=== PATIENT | female | born 1945 | race Caucasian/White ===

== ENCOUNTER 2016-10-01 12:19 | Observation (INO) ==
[2016-10-01] MEDS ORDERED: HYDROmorphone 2 MG/1 ML VIAL IV PRN (14:04)
[2016-10-01] MEDS ORDERED: ACETAMINOPHEN 325 MG TABLET PO PRN (14:04)
[2016-10-01] MEDS ORDERED: ONDANSETRON 4 MG/2 ML VIAL IV PRN (14:04)
[2016-10-01 14:32] LABS: Basophils # 0.1 10*3/uL (0.0-0.2); Basophils % 0.9 % (0.0-0.8); Eosinophils # 0.6 10*3/uL (0.0-0.87); Eosinophils % 6.3 % (0.00-10.9); Hematocrit 40.3 VOL% (35.7-47.0); Hemoglobin 13.5 GM/DL (12.0-16.0); Immature Granulocytes % 0.4 %; Immature Granulocytes Absolute 0.04 #; Lymphocytes # 1.4 10*3/uL (1.4-4.0); Lymphocytes % 15.3 % (21.3-54.2); Mean Corpuscular HGB Conc 33.5 GM/DL (32-36); Mean Corpuscular Hemoglobin 30 PG (27-34); Mean Corpuscular Volume 90.8 FL (87-102); Mean Platelet Volume 9.7 FL (9.6-12.0); Monocytes # 0.5 10*3/uL (0.11-0.8); Monocytes % 5.7 % (1.7-12.7); NRBC # 0.04 10*3/uL; Neutrophils # 6.5 10*3/uL (1.4-7.4); Neutrophils % 71.4 % (38.7-73.9); Platelet Count 242 T/CUMM (130-400); Red Blood Count 4.44 MC/CUMM (3.8-5.5); Red Cell Distribution Width 14.2 % (9.3-17.3); White Blood Count 9.1 T/CUMM (4-12)
[2016-10-01 15:07] LABS: Alanine Aminotransferase 33 U/L (13-56); Albumin 2.6 G/DL (3.4-5.0); Alkaline Phosphatase 180 U/L (45-117); Aspartate Amino Transferase 27 U/L (0-37); Bilirubin,Total < 0.39 MG/DL (0.2-1.0); Blood Urea Nitrogen 15 MG/DL (7-18); Glucose 77 MG/DL (74-106); Magnesium 2.1 MG/DL (1.8-2.4); Osmolality,Calculated 276.5 MOS/KG (273-304); Potassium 4.5 MMOL/L (3.5-5.1); Sodium 139 MMOL/L (136-145); Total Protein 6.2 G/DL (6.4-8.3)
--- NOTE | 2016-10-01 15:57 | General Surg History&Physical ---
Assessment and Plan (1) Blister of abdominal wall with infection Status: Acute Assessment and plan: I have recommended admission with antibiotics and CT scan of the abdomen and pelvis with p.o. and IV contrast to further evaluate the etiology of this drainage. Current Visit: Yes History of Present Illness Chief complaint: Drainage from abdominal wound History of present illness: Ms. 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 This has been going on for about 2 weeks. Home Medications Medication Instructions Recorded Confirmed Type Famotidine 20 mg PO BID 06/28/16 10/01/16 History Levothyroxine Sodium 100 mcg PO DAILY 06/28/16 10/01/16 History Loperamide Cap [Imodium Cap] 2 mg PO TID 06/28/16 10/01/16 History Multivitamin [One Daily] 1 each PO DAILY 06/28/16 10/01/16 History OLANZapine TAB [ZyPREXA Tab] 2.5 mg PO BEDTIME 06/28/16 10/01/16 History Ferrous Sulfate Tab [Feosol 325 mg PO BID #60 tablet 07/16/16 10/01/16 Rx Original Tab] Skin Healing Oint (Aquaphor) 1 applic TOP BID 10/01/16 10/01/16 History [Aquaphor] buPROPion XL [Wellbutrin Xl] 150 mg PO DAILY 10/01/16 10/01/16 History Allergies Allergy/AdvReac Type Severity Reaction Status Date / Time sulfamethoxazole Allergy RASH Verified 06/29/16 10:45 [From Bactrim] trimethoprim [From Bactrim] Allergy RASH Verified 06/29/16 10:45 vancomycin Allergy RASH Verified 02/22/16 10:27 Tetracyclines AdvReac Unknown/Unable Verified 06/15/15 12:51 to obtain Medical,Surgical,& Family Hx - Medical History Cardio: History of: Hypertension Psychological: History of: Anxiety Disorders, Depression Neurology: History of: Migraine, Peripheral Neuropathy No history of: Brain Aneurysm, Cerebral Hemorrhage, Cerebrovascular Accident , Cerebral Palsy, Dementia, Multiple Sclerosis, Parkinson's Disease, Seizures, TIA, Vertigo, Neurologocal Cancer HEENT: History of: Eye Problem (cataracts both eyes taken off), Dental Problems (Patient wears upper dentures) Endocrine: History of: Thyroid Disorder Rheumatology: History of;: Rheumatological Problems Respiratory: History of: Bronchitis, Pneumonia (aspiration), Respiratory Problems (trach-2016) Genitourinary: History of: Kidney Stones Gastrointestinal: History of: Clostridium Difficile (01/2016), GERD, Gastrointestinal Bleed, Ulcerative Colitis, GI Problems (duodenum ulcer-2016) Musculoskeletal: History of: Back/Neck Problems (chronic pain med) Hematology: History of: Anemia Other: No history of: Anesthesia Reactions - Surgical History Cardiac Surgeries: Patient Denies: Cardiac Catheterization Neurologic Surgeries: Patient denies: Brain Aneurysm, Cerebral Hemorrhage, Neurologic Surgery HEENT Surgeries: Surgical HX of: Tonsilectomy & Adenoidectomy Abdominal Surgeries: Surgical HX of: Abdominal Surgery (Ileostomy, colectomy, and PEG) Reproductive Surgeries: Surgical HX of;: Section, Gynecologic Surgery, Hysterectomy - Family History Family History: Reports;: Family Stroke (father) - Social History Smoking Status: Former smoker Frequency of Alcohol Use: None Type of Drug Use: None Exam - Constitutional Vitals: Period Temp Pulse Resp BP Sys/Sharp Pulse Ox Last 24 Hr 97.3 F 66 20 93/51 100 General appearance: no acute distress, under weight - Head Head exam: Present: normal inspection, normocephalic - Eye Eye exam: Present: EOMI Pupils: Present: YISSEL - ENT ENT exam: Present: normal exam Mouth exam: Present: normal external inspection, normal voice - Neck Neck exam: Present: normal inspection, trachea midline - Respiratory Respiratory exam: Present: clear to auscultation bilaterally. Absent: accessory muscle use, chest wall tenderness - Cardiovascular Cardiovascular exam: Present: RRR. Absent: systolic murmur, tachycardia - GI/Abdominal GI/Abdominal exam: Present: normal bowel sounds, tenderness, soft, other ( Purulent drainage from the lower border of the prior skin graft site on the lower abdominal wall wound.). Absent: rebound - Extremities Exam Extremities exam: Present: normal inspection, normal capillary refill - Neurological Exam Neurological exam: Present: alert, oriented X3 Speech: Present: normal - Skin Skin exam: Present: normal color, warm - Constitutional Constitutional: Present: as per HPI - EENT Nose, mouth and throat: Present: as per HPI - Cardiovascular Cardiovascular: Present: as per HPI - Respiratory Respiratory: Present: as per HPI - Gastrointestinal Gastrointestinal: Present: as per HPI - Genitourinary Genitourinary: Present: as per HPI - Musculoskeletal Musculoskeletal: Present: as per HPI - Neurological Neurological: Present: as per HPI - Endocrine Endocrine: Present: as per HPI Hematologic/Lymphatic: Present: as per HPI Quality Measures - VTE Contraindication to Pharmacological VTE Prophylaxis: High Risk of Bleeding Results - Labs CBC & BMP: 10/01/16 14:20 10/01/16 14:20
--- NOTE | 2016-10-01 16:31 | CT Report ---
CT abdomen pelvis wo con Indication: Abdominal wound infection. CT ABDOMEN AND PELVIS WITHOUT CONTRAST DLP: 187 mGy*cm. One or more of the following dose reduction techniques was used: Automated exposure control, adjustment of the mA and/or kV according the patient size, or use of iterative reconstruction techniques. Comparison: 07/14/2016. Technique: Axial noncontrast CT images of the abdomen and pelvis were obtained. Abdomen: PEG tube position is unchanged without fluid along the tract. The button terminates in the gastric lumen. Tracking inferiorly, there is a layered soft tissue thickening of the anterior abdominal wall that appears to be a prior midline laparotomy that is healed by secondary intention. This sessile area of skin thickening measures 6 mm in thickness over an area of 40 mm. Within the middle layer which is somewhat hyperdense, couple of tiny air bubbles are shown superiorly. Tracking inferiorly, at the lower margin of the midline laparotomy, there is a 25 x 37 mm collection that likely represents abscess. Tiny bubble of air is present. Right lower quadrant ileostomy noted. Unenhanced liver, spleen, gallbladder, left kidney, adrenal glands and pancreas appear unremarkable. Nonobstructing 2 mm stone in the right kidney is again shown. Tiny left pleural effusion is present, and there is a small amount of residual fluid adjacent to the spleen that is unchanged from June. Normal heart size. Lung bases are generally clear. Pelvis: Urinary bladder is distended. There is some calcified debris within the left dependent bladder. Uterus is absent. The remaining colon is decompressed. Impression: 1. Just inferior the PEG tube entry site is a layered area of skin thickening that may be infected, within the midline laparotomy bed that has healed by secondary intention. 2. Further inferior at the lower edge of the midline laparotomy is a 37 x 25 mm subcutaneous collection with a couple of bubbles of air, likely an abscess. Without contrast, either oral or IV, integrity of the peritoneum between this abscess pocket and adjacent bowel cannot be ascertained. 3. Right lower quadrant ileostomy. Decompressed remaining colon. 4. Tiny right pleural effusion. Small amount of residual fluid adjacent to the spleen is unchanged from June 2016. 5. Bladder calculi. Nonobstructing right kidney stone. PROCEDURE INTERPRETED AT [facility] DEPARTMENT OF RADIOLOGY Final Report Signed by: Usman Lopes M.D.
[2016-10-01] MEDS: LACTATED RINGERS 1,000 ML IV SCH ×2 (16:42→23:05)
[2016-10-01] MEDS: PIPERACILLIN/TAZOBACTAM 3,375 MG in SODIUM CHLORIDE 0.9% 100 ML IV SCH ×2 (16:43→23:04)
[2016-10-01 19:05] LABS: Platelet Estimate Normal
[2016-10-02] MEDS: PIPERACILLIN/TAZOBACTAM 3,375 MG in SODIUM CHLORIDE 0.9% 100 ML IV SCH (06:20)
[2016-10-02] MEDS: LACTATED RINGERS 1,000 ML IV SCH ×2 (08:13→14:15)
[2016-10-02] MEDS ORDERED: PANTOPRAZOLE 40 MG TABLET PO SCH (09:00)
[2016-10-02] MEDS ORDERED: LEVOFLOXACIN 500 MG TABLET PO SCH (09:30)
[2016-10-02] MEDS ORDERED: buPROPion XL 150 MG TABLET PO SCH (09:30)
[2016-10-02] MEDS ORDERED: FERROUS SULFATE 325 MG TABLET PO SCH (09:30)
[2016-10-02] MEDS ORDERED: SKIN HEALING OINT (AQUAPHOR) 50 GM TUBE TOP SCH (09:30)
[2016-10-02] MEDS ORDERED: LEVOTHYROXINE 100 MCG TABLET PO SCH (09:30)
--- NOTE | 2016-10-02 10:17 | Discharge Summary ---
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 Escobar's clinic on 10/01/2016 with purulent drainage from her prior abdominal wall closure. Dr. Escobar ordered a CT of the abdomen and pelvis with IV and p.o. contrast but patient did refuse the contrast. CT without contrast shows a subcutaneous collection with some air that may have been an abscess at one time. It is now compressed. Will obtain cultures from this and start patient on p.o. antibiotics. She [facility] be [facility] today and Dr. Escobar will follow up with cultures. We will have the patient follow-up with him in his office in 1-2 weeks. Care coordination, chart review, and completed discharge paperwork took approximately 33 minutes. - Time spent with patient Time with patient DS: Greater than 30 minutes Diagnosis - Discharge Diagnosis (1) Blister of abdominal wall with infection Status: Resolved Discharge Plan - Discharge Data Disposition: Disch/Xfer to Snf Condition at Discharge: Stable Discharge Diet: advance to your usual diet Activity: resume usual activities as tolerated Contact your physician if you experience:: fever over 101, Redness or swelling, Nausea/Vomiting - Discharge Medications New metroNIDAZOLE TAB [Flagyl Cap/Tab] 500 mg PO TID #30 tablet Levofloxacin Tab [Levaquin Tab] 500 mg PO DAILY #10 tablet Continue Multivitamin [One Daily] 1 each PO DAILY Levothyroxine Sodium 100 mcg PO DAILY Famotidine 20 mg PO BID Ferrous Sulfate Tab [Feosol Original Tab] 325 mg PO BID #60 tablet Skin Healing Oint (Aquaphor) [Aquaphor] 1 applic TOP BID OLANZapine TAB [ZyPREXA Tab] 2.5 mg PO BEDTIME Loperamide Cap [Imodium Cap] 2 mg PO TID buPROPion XL [Wellbutrin Xl] 150 mg PO DAILY - Follow Up or Referral Follow Up: Ady Escoabr MD [Physician] - 1 Week - Forms/Instructions Additional Discharge Instructions: have lab fax final culture results to dr escobar's office Exam - Constitutional Vitals: Period Temp Pulse Resp BP Sys/Sharp Pulse Ox Last 24 Hr 97.3 F-100.7 F 59-94 18-20 93-109/51-65 96-100 Exam: 71-year-old white female, no acute distress, alert Chest clear CV regular rate rhythm Abdomen soft, nontender, PEG tube intact Extremities no edema Discharge Results Procedures and tests throughout hospitalization: Pending Orders 10/01/16 14:09 Urinalysis Stat 10/02/16 09:29 Abscess Culture Stat Labs on day of discharge: Labs from last 24 hours 10/01/16 10/01/16 14:20 14:20 WBC 9.1 RBC 4.44 Hgb 13.5 Hct 40.3 MCV 90.8 MCH 30 MCHC 33.5 RDW 14.2 Plt Count 242 MPV 9.7 Neut % (Auto) 71.4 Lymph % (Auto) 15.3 L Cocke % (Auto) 5.7 Eos % (Auto) 6.3 Baso % (Auto) 0.9 H Neut # (Auto) 6.5 Lymph # (Auto) 1.4 Cocke # (Auto) 0.5 Eos # (Auto) 0.6 Baso # (Auto) 0.1 Immature Gran % 0.4 Nucleated RBC % 0.4 Immature Gran # 0.04 Nucleated RBCs # 0.04 Platelet Estimate Normal Sodium 139 Potassium 4.5 Chloride 102 Carbon Dioxide 28 Anion Gap 13.5 BUN 15 Creatinine 0.50 L GFR Calculation 78 BUN/Creatinine Ratio 30.00 H Glucose 77 Calculated Osmolality 276.5 Calcium 9.0 Magnesium 2.1 Total Bilirubin < 0.39 AST 27 ALT 33 Alkaline Phosphatase 180 H Total Protein 6.2 L Albumin 2.6 L Globulin 3.6 H Albumin/Globulin Ratio 0.7 L DS: Provider Date of admission: 10/01/16 12:19 Primary care physician: . No PCP Attending physician on admission: Ady Escobar MD Consults: 10/02/16 09:29 Consult to Dietitian [CONS] Routine Reason for Dietitian: TF-Initiate/Manage Consult Comment: ok for pt to have water po Discharging clinician: DEONTE [place] Expected date of discharge: 10/02/16
[2016-10-02] MEDS ORDERED: SILVER SULFADIAZINE 1% CREAM 25 GM TUBE TOP SCH (11:00)
[2016-10-02 13:03] VITALS: BP 104/52
[2016-10-02] MEDS ORDERED: metroNIDAZOLE 500 MG TABLET PO SCH (15:00)
[2016-10-02] MEDS ORDERED: LOPERAMIDE 2 MG CAPSULE PO SCH (15:00)
[2016-10-02] MEDS ORDERED: OLANZapine 2.5 MG TABLET PO SCH (21:00)
[2016-10-03] MEDS ORDERED: MULTIVITAMIN (CENTRUM) TABLET PO SCH (09:00)
== END 2016-10-02 14:27 ==
LOC: N.3E
PROVIDERS: ADMIT Surgery; ATTEND Surgery

== ENCOUNTER 2017-10-27 14:18 | Inpatient (IN) ==
[2017-10-27] MEDS ORDERED: PROMETHAZINE 25 MG/1 ML VIAL IM PRN (17:11)
[2017-10-27] MEDS ORDERED: ONDANSETRON 4 MG/2 ML VIAL IV PRN (17:11)
[2017-10-27] MEDS ORDERED: ACETAMINOPHEN 325 MG TABLET PO PRN (17:11)
[2017-10-27 18:33] LABS: Basophils # 0.1 10*3/uL (0.0-0.2); Basophils % 0.6 % (0.0-0.8); Eosinophils # 0.1 10*3/uL (0.0-0.87); Eosinophils % 0.5 % (0.00-10.9); Hematocrit 37.6 VOL% (35.7-47.0); Hemoglobin 11.5 GM/DL (12.0-16.0); Immature Granulocytes % 0.5 %; Immature Granulocytes Absolute 0.06 #; Lymphocytes # 1.1 10*3/uL (1.4-4.0); Lymphocytes % 8.9 % (21.3-54.2); Mean Corpuscular HGB Conc 30.6 GM/DL (32-36); Mean Corpuscular Hemoglobin 28 PG (27-34); Mean Corpuscular Volume 90.8 FL (87-102); Mean Platelet Volume 9.2 FL (9.6-12.0); Monocytes # 0.7 10*3/uL (0.11-0.8); Monocytes % 5.5 % (1.7-12.7); Neutrophils # 10.7 10*3/uL (1.4-7.4); Platelet Count 347 T/CUMM (130-400); Red Blood Count 4.14 MC/CUMM (3.8-5.5); Red Cell Distribution Width 14.8 % (9.3-17.3); White Blood Count 12.8 T/CUMM (4-12)
[2017-10-27 18:49] LABS: Calcium 8.6 MG/DL (8.5-10.1); Osmolality,Calculated 274.7 MOS/KG (273-304); Potassium 4.2 MMOL/L (3.5-5.1)
[2017-10-27] MEDS: LACTATED RINGERS 1,000 ML IV SCH (22:52)
[2017-10-28] MEDS: LACTATED RINGERS 1,000 ML IV SCH ×3 (06:10→21:16)
[2017-10-28] MEDS: ENOXAPARIN 40 MG/0.4 ML SYRINGE SUBCUT SCH (08:35)
[2017-10-28] MEDS: PANTOPRAZOLE 40 MG TABLET PO SCH (08:35)
[2017-10-28] MEDS: HYDROmorphone 2 MG/1 ML VIAL IV PRN ×2 (08:35→12:37)
[2017-10-28] MEDS ORDERED: TISSUE ADHESIVE 1 EACH APPLICATOR TOP ONE (18:38)
[2017-10-29] MEDS: HYDROmorphone 2 MG/1 ML VIAL IV PRN ×2 (01:59→06:02)
[2017-10-29] MEDS: LACTATED RINGERS 1,000 ML IV SCH ×2 (02:03→09:30)
[2017-10-29] MEDS ORDERED: LOPERAMIDE PO SCH (09:00)
[2017-10-29] MEDS: ENOXAPARIN 40 MG/0.4 ML SYRINGE SUBCUT SCH (09:15)
[2017-10-29] MEDS: MULTIVITAMIN (CENTRUM) TABLET PEG SCH (09:28)
[2017-10-29] MEDS: PANTOPRAZOLE 40 MG TABLET PO SCH (09:28)
[2017-10-29] MEDS: FERROUS SULFATE 300 MG/5 ML UDCUP PEG SCH ×3 (09:29→20:57)
[2017-10-29] MEDS: FAMOTIDINE 20 MG TABLET PEG SCH ×2 (09:29→20:56)
[2017-10-29] MEDS: buPROPion 75 MG TABLET PO SCH ×2 (09:30→20:56)
[2017-10-29] MEDS: LEVOTHYROXINE 100 MCG TABLET PEG SCH (09:30)
[2017-10-29] MEDS: OLANZapine 5 MG TABLET PEG SCH (20:56)
[2017-10-30] MEDS: LACTATED RINGERS 1,000 ML IV SCH ×2 (04:05→18:11)
[2017-10-30 06:38] LABS: Calcium 7.9 MG/DL (8.5-10.1); Osmolality,Calculated 273.8 MOS/KG (273-304); Potassium 3.8 MMOL/L (3.5-5.1)
[2017-10-30] MEDS: FERROUS SULFATE 300 MG/5 ML UDCUP PEG SCH ×3 (08:16→20:53)
[2017-10-30] MEDS: PANTOPRAZOLE 40 MG TABLET PO SCH (08:17)
[2017-10-30] MEDS: buPROPion 75 MG TABLET PO SCH ×2 (08:17→20:53)
[2017-10-30] MEDS: MULTIVITAMIN (CENTRUM) TABLET PEG SCH (08:17)
[2017-10-30] MEDS: FAMOTIDINE 20 MG TABLET PEG SCH ×2 (08:17→20:53)
[2017-10-30] MEDS: ENOXAPARIN 40 MG/0.4 ML SYRINGE SUBCUT SCH (08:17)
[2017-10-30] MEDS: LEVOTHYROXINE 100 MCG TABLET PEG SCH (08:17)
[2017-10-30] MEDS: HYDROmorphone 2 MG/1 ML VIAL IV PRN (10:56)
[2017-10-30] MEDS: OLANZapine 5 MG TABLET PEG SCH (20:53)
[2017-10-31] MEDS: LACTATED RINGERS 1,000 ML IV SCH (07:24)
[2017-10-31] MEDS: buPROPion 75 MG TABLET PO SCH ×2 (10:01→21:32)
[2017-10-31] MEDS: LEVOTHYROXINE 100 MCG TABLET PEG SCH (10:01)
[2017-10-31] MEDS: MULTIVITAMIN (CENTRUM) TABLET PEG SCH (10:01)
[2017-10-31] MEDS: ENOXAPARIN 40 MG/0.4 ML SYRINGE SUBCUT SCH (10:01)
[2017-10-31] MEDS: FAMOTIDINE 20 MG TABLET PEG SCH ×2 (10:01→21:33)
[2017-10-31] MEDS: PANTOPRAZOLE 40 MG TABLET PO SCH (10:01)
[2017-10-31] MEDS: FERROUS SULFATE 300 MG/5 ML UDCUP PEG SCH ×2 (10:01→20:36)
[2017-10-31] MEDS: HYDROmorphone 2 MG/1 ML VIAL IV PRN (10:40)
[2017-10-31] MEDS: OLANZapine 5 MG TABLET PEG SCH (21:33)
[2017-11-01] MEDS: LACTATED RINGERS 1,000 ML IV SCH ×2 (00:10→14:21)
[2017-11-01 04:51] LABS: Osmolality,Calculated 280.1 MOS/KG (273-304); Potassium 3.6 MMOL/L (3.5-5.1); Prealbumin 7.6 MG/DL (20-40)
[2017-11-01] MEDS: MULTIVITAMIN (CENTRUM) TABLET PEG SCH (08:29)
[2017-11-01] MEDS: FERROUS SULFATE 300 MG/5 ML UDCUP PEG SCH ×2 (08:30→21:09)
[2017-11-01] MEDS: FAMOTIDINE 20 MG TABLET PEG SCH ×2 (08:31→21:09)
[2017-11-01] MEDS: LEVOTHYROXINE 100 MCG TABLET PEG SCH (08:31)
[2017-11-01] MEDS: buPROPion 75 MG TABLET PO SCH ×2 (08:31→21:10)
[2017-11-01] MEDS: ENOXAPARIN 40 MG/0.4 ML SYRINGE SUBCUT SCH (08:31)
[2017-11-01] MEDS: PANTOPRAZOLE 40 MG TABLET PO SCH (08:31)
[2017-11-01] MEDS: HYDROmorphone 2 MG/1 ML VIAL IV PRN ×2 (10:23→15:53)
[2017-11-01] MEDS: OLANZapine 5 MG TABLET PEG SCH (21:10)
[2017-11-02] MEDS: LACTATED RINGERS 1,000 ML IV SCH ×2 (01:56→04:56)
[2017-11-02 05:39] LABS: Basophils % 0.2 % (0.0-0.8); Eosinophils # 0.6 10*3/uL (0.0-0.87); Eosinophils % 4.9 % (0.00-10.9); Hematocrit 31.1 VOL% (35.7-47.0); Hemoglobin 9.7 GM/DL (12.0-16.0); Immature Granulocytes % 0.6 %; Immature Granulocytes Absolute 0.07 #; Lymphocytes # 1.3 10*3/uL (1.4-4.0); Mean Corpuscular HGB Conc 31.2 GM/DL (32-36); Mean Corpuscular Hemoglobin 28 PG (27-34); Mean Corpuscular Volume 89.6 FL (87-102); Mean Platelet Volume 8.8 FL (9.6-12.0); Monocytes # 0.5 10*3/uL (0.11-0.8); Monocytes % 4.6 % (1.7-12.7); Neutrophils # 9.1 10*3/uL (1.4-7.4); Neutrophils % 78.7 % (38.7-73.9); Platelet Count 295 T/CUMM (130-400); Red Blood Count 3.47 MC/CUMM (3.8-5.5); Red Cell Distribution Width 15.5 % (9.3-17.3); White Blood Count 11.6 T/CUMM (4-12)
[2017-11-02] MEDS: ENOXAPARIN 40 MG/0.4 ML SYRINGE SUBCUT SCH (08:52)
[2017-11-02] MEDS: FERROUS SULFATE 300 MG/5 ML UDCUP PEG SCH (08:52)
[2017-11-02] MEDS: FAMOTIDINE 20 MG TABLET PEG SCH (08:52)
[2017-11-02] MEDS: MULTIVITAMIN (CENTRUM) TABLET PEG SCH (08:52)
[2017-11-02] MEDS: LEVOTHYROXINE 100 MCG TABLET PEG SCH (08:53)
[2017-11-02] MEDS: PANTOPRAZOLE 40 MG TABLET PO SCH (08:53)
[2017-11-02] MEDS: buPROPion 75 MG TABLET PO SCH (08:54)
[2017-11-02] MEDS: HYDROmorphone 2 MG/1 ML VIAL IV PRN (11:11)
[2017-11-02 12:10] VITALS: BP 102/52
[2017-11-02] MEDS ORDERED: BACITRACIN OINT 0.9 GM PACK TOP SCH (12:30)
== END 2017-11-02 14:21 | DRG 395 ==
LOC: N.3E → OBSVTOIN 14:51
PROVIDERS: ADMIT Surgery; ATTEND Surgery

== ENCOUNTER 2017-11-16 17:34 | Inpatient (IN) ==
[2017-11-16] MEDS ORDERED: ONDANSETRON 4 MG/2 ML VIAL IV PRN (20:39)
[2017-11-16 21:10] LABS: Basophils # 0.1 10*3/uL (0.0-0.2); Basophils % 0.8 % (0.0-0.8); Eosinophils # 0.7 10*3/uL (0.0-0.87); Eosinophils % 5.9 % (0.00-10.9); Hematocrit 40.7 VOL% (35.7-47.0); Hemoglobin 12.7 GM/DL (12.0-16.0); Immature Granulocytes % 0.4 %; Immature Granulocytes Absolute 0.04 #; Lymphocytes # 2.3 10*3/uL (1.4-4.0); Lymphocytes % 20.4 % (21.3-54.2); Mean Corpuscular HGB Conc 31.2 GM/DL (32-36); Mean Corpuscular Hemoglobin 28 PG (27-34); Mean Corpuscular Volume 89.3 FL (87-102); Mean Platelet Volume 9.5 FL (9.6-12.0); Monocytes # 0.8 10*3/uL (0.11-0.8); Monocytes % 7.3 % (1.7-12.7); Neutrophils # 7.2 10*3/uL (1.4-7.4); Neutrophils % 65.2 % (38.7-73.9); Platelet Count 394 T/CUMM (130-400); Red Blood Count 4.56 MC/CUMM (3.8-5.5); Red Cell Distribution Width 15.5 % (9.3-17.3)
[2017-11-16 22:27] LABS: Albumin 2.6 G/DL (3.4-5.0); Bilirubin,Total 0.5 MG/DL (0.2-1.0); Calcium 8.7 MG/DL (8.5-10.1); Osmolality,Calculated 274.8 MOS/KG (273-304); Potassium 3.5 MMOL/L (3.5-5.1); Total Protein 6.9 G/DL (6.4-8.3)
[2017-11-17] MEDS: DEXTROSE 5% NACL 0.45% 1,000 ML IV SCH ×4 (00:34→21:59)
[2017-11-17] MEDS: LEVOTHYROXINE 100 MCG VIAL IV SCH (07:32)
[2017-11-17] MEDS: PANTOPRAZOLE 40 MG VIAL IV SCH (08:45)
[2017-11-17] MEDS ORDERED: TISSUE ADHESIVE 1 EACH APPLICATOR TOP ONE (11:00)
[2017-11-18] MEDS: DEXTROSE 5% NACL 0.45% 1,000 ML IV SCH (04:27)
[2017-11-18 04:57] LABS: Calcium 8.3 MG/DL (8.5-10.1); Osmolality,Calculated 265.8 MOS/KG (273-304); Potassium 3.5 MMOL/L (3.5-5.1); Prealbumin 9.7 MG/DL (20-40)
[2017-11-18] MEDS: LEVOTHYROXINE 100 MCG VIAL IV SCH (06:16)
[2017-11-18] MEDS: PANTOPRAZOLE 40 MG VIAL IV SCH (08:50)
[2017-11-18 16:23] VITALS: BP 102/52
== END 2017-11-18 18:47 | DRG 395 ==
LOC: EDBD → EDUNIT# → N.ED 17:34 → N.EDINP 20:38 → N.4E 22:06 → N.5E 11-17 15:18
PROVIDERS: ADMIT Surgery; ATTEND Surgery